=== PATIENT | female | born 1990 | race Caucasian/White ===

== ENCOUNTER 2024-03-11 13:51 | Emergency (ER) | payer OTHER ==
[~2024-03-11] VITALS: Ht 152.4 cm; Wt 53.5 kg
[2024-03-11] MEDS ORDERED: ALPR0.25 PO (16:17)
[2024-03-11 16:27] VITALS: BP 111/74; TEMP 97.9; O2SAT 90
== END 2024-03-11 16:27 | disposition home or self-care (01) ==
LOC: ER 13:51
DX: G47.00 Insomnia, unspecified (principal); F41.9 Anxiety disorder, unspecified; I10 Essential (primary) hypertension; E11.9 Type 2 diabetes mellitus without complications; Z79.899 Other long term (current) drug therapy; Z60.2 Problems related to living alone